=== PATIENT | male | born 1985 | race Caucasian/White ===

== ENCOUNTER 2016-08-27 15:49 | Emergency (ER) | payer BC ==
[~2016-08-27] VITALS: Ht 167.6 cm; Wt 83.6 kg
[~2016-08-27 15:49] MED LIST: ERYTHROMYC1 APPLICAT BOTH EYES; ULTRAM50 MG PO
[2016-08-27 17:02] LABS: BILIRUBIN NEGATIVE; BLOOD NEGATIVE; COLOR YELLOW ((YELLOW)); GLUCOSE (STRIP) NEGATIVE; KETONES NEGATIVE; LEUKOCYTES NEGATIVE; NITRITE NEGATIVE; PROTEIN (STRIP) 30; SPECIFIC GRAVITY 1.027 (1.000-1.030); UROBILINOGEN 0.2 MG/DL (0.2-1.0)
[2016-08-27 17:03] LABS: ADD MIUA? NO; UCUL ADDED? NO
[2016-08-27 17:17] LABS: MCH 29.1 PG (29.0-34.0); MCHC 33.6 G/DL (30.0-36.0); MCV 86.8 FL (86-99); MEAN PLAT.VOLUME 10.6 uM^3 (9.0-12.4); PLATELET COUNT 281 K/uL (156-360); RBC DIS.WIDTH-SD 38.3 % (39-53); RED BLOOD COUNT 4.84 M/uL (4.00-5.50); WHITE BLOOD COUNT 10.3 K/uL (4.1-10.2)
[2016-08-27 17:31] LABS: CHLORIDE 109 mEq/L (99-109); SODIUM 142 mEq/L (136-147)
[2016-08-27 17:33] LABS: GLUCOSE 91 mg/dL (70-99)
[2016-08-27 17:34] LABS: ANION GAP 11 MEQ/L (2-14)
[2016-08-27 17:35] LABS: TOTAL BILIRUBIN 0.3 mg/dL (0.0-1.0)
[2016-08-27 17:36] LABS: ALKALINE PHOSPHATASE 56 IU/L (3-129)
[2016-08-27 17:37] LABS: GFR ESTIMATE (CALCULATED) > 59 mL/min/
[2016-08-27 17:38] LABS: UREA NITROGEN (BUN) 17 mg/dL (9-23)
[2016-08-27] MEDS ORDERED: NAPROSYN500 MG PO (20:07)
[2016-08-27 20:30] VITALS: BP 123/73
== END 2016-08-27 20:31 | disposition home or self-care (01) ==
LOC: EME 15:49
PROVIDERS: Nurse Practitioner Family
DX: Q43.8 Other specified congenital malformations of intestine (principal); R10.30 Lower abdominal pain, unspecified; R30.0 Dysuria; Z87.891 Personal history of nicotine dependence
CPT/HCPCS: 74176; 80053; 81003; 85027; 99281; 99284